=== PATIENT | female | born 1995 | race African-American/Black ===

== ENCOUNTER 2018-02-11 21:02 | Emergency (ER) | payer SELFPAY ==
[~2018-02-11] VITALS: Ht 175.3 cm; Wt 72.6 kg
[2018-02-11] MEDS ORDERED: NKM (21:11)
[2018-02-11 21:15] VITALS: BP 115/73
--- NOTE | 2018-02-11 21:27 | Emergency Room Report ---
History of Present Illness General Chief Complaint: Laceration Source: Patient Present Illness HPI Is a 22-year-old female who is right-hand dominant. She presents with chief complaint laceration. She was in the shower when she closed the shower door and it shattered. She sustained superficial laceration to her fingers and feet. Onset was about an hour ago. No other injury. Did not pass out. Nothing made it better. Nothing made it worse. Allergies: Coded Allergies: No Known Allergies (Unverified , 02/11/18) Patient History Past Medical History: none, see triage record, old chart reviewed Past Surgical History: none Pertinent Family History: none Social History: Denies: smoking Last Menstrual Period: January Now: No Immunizations: UTD Reviewed Nursing Documentation: PMH: Agreed; PSxH: Agreed Nursing Documentation-PMH Past Medical History: No Stated History Review of Systems Eye: Denies: eye pain, blurred vision ENT: Denies: ear pain, nose congestion, throat swelling Respiratory: Denies: cough, shortness of breath Cardiovascular: Denies: chest pain, palpitations Gastrointestinal: Denies: abdominal pain, diarrhea, nausea, vomiting Musculoskeletal: Denies: back pain, joint pain Skin: Denies: rash Neurological: Denies: headache, numbness Endocrine: Denies: increased thirst, increased urine Hematologic/Lymphatic: Denies: easy bruising All Other Systems: negative except mentioned in HPI Physical Exam Vital Signs Date Time Temp Pulse Resp B/P (MAP) Pulse Ox O2 Delivery O2 Flow Rate FiO2 02/11/18 21:08 98.5 73 16 115/73 99 Room Air 98.4 vitals normal Sp02 EP Interpretation: reviewed, normal General Appearance: well appearing, no apparent distress, alert Head: normocephalic, atraumatic Eyes: bilateral eye PERRL, bilateral eye EOMI ENT: hearing grossly normal, normal pharynx Neck: full range of motion, supple, no meningismus Respiratory: chest non-tender, lungs clear, normal breath sounds Cardiovascular #1: regular rate, rhythm, no murmur Gastrointestinal: normal bowel sounds, non tender, no mass, no organomegaly, no bruit, non-distended Musculoskeletal: back normal, gait/station normal, normal range of motion, other - left ring finger: There is a superficial 3mm lac to the base of the nail. no FB. No tendon involvement. superficial small abrasion to legs and feet. no fb. Psychiatric: mood/affect normal Skin: warm/dry Medical Decision Making Diagnostic Impression: Primary Impression: Abrasion foot/toe Additional Impression: Laceration of finger of left hand Qualified Codes: S61.215A - Laceration without foreign body of left ring finger without damage to nail, initial encounter ER Course Patient presents with superficial injury from glass. Luckily the shower door was tempered. No foreign body. We'll discharge home. Last Vital Signs Date Time Temp Pulse Resp B/P (MAP) Pulse Ox O2 Delivery O2 Flow Rate FiO2 02/11/18 21:15 98.4 73 16 115/73 99 Room Air 98.4 Status: improved Disposition: HOME, SELF-CARE Condition: Stable Patient Instructions: Nonsutured Laceration Care Additional Instructions: Keep wound clean. Follow-up with your doctor in 7 days. Return if worse. COMFORT FONTAINE M.D. February 11, 2018 21:27
[2018-02-11] MEDS ORDERED: Bacitracin Oint UD TOPIC ONE (21:30)
[2018-02-11 21:37] VITALS: BP 115/73
== END 2018-02-11 21:37 | disposition home or self-care (01) ==
LOC: EMR 21:20
DX: S61.315A Laceration without foreign body of left ring finger with damage to nail, initial encounter (principal); S80.812A Abrasion, left lower leg, initial encounter; S80.811A Abrasion, right lower leg, initial encounter; S90.812A Abrasion, left foot, initial encounter; S90.811A Abrasion, right foot, initial encounter; W25.XXXA Contact with sharp glass, initial encounter; Y92.002 Bathroom of unspecified non-institutional (private) residence as the place of occurrence of the external cause
CPT/HCPCS: 99283